=== PATIENT | female | born 1955 | race Caucasian/White ===

== ENCOUNTER 2025-01-18 14:26 | Outpatient (AMB) | payer OTHER, SELFPAY ==
--- NOTE | 2025-01-18 14:28 | A.PHYSOV ---
Vital Signs 01/18/25 14:29 Height 5 ft 5 in Weight 121 lb BMI 20.1 Intake Visit Reasons: Follow up after injection 12/12/24 Intake Note: Patient a 69 year old female in office today for a follow up after Right Hip Injection on 12/18/24. Post Anesthesia Room Nurse Required: No Allergies Penicillins Allergy (Unknown, Verified 01/18/25 14:31) Unknown HPI Comments Details: History of Present Illness The patient is a 69-year-old individual presenting with concerns about hip pain and the effectiveness of a recent hip injection. Patient under went right hip intra-articular injection 12/18/2024. She reports 80% reduction of her pain. The patient reported significant improvement in hip pain following the injection, which allowed the patient to sit and lay down comfortably. However, the patient continues to experience knee and back pain, which have not been treated with injections or therapy. The patient described the knee pain as occurring upon waking in the morning. The patient declined further interventions for the knee at this time, including injections, therapy, or imaging. The patient has been informed of severe degenerative changes in the hip joint, which may necessitate a hip replacement in the future. The patient expressed reluctance towards hip replacement surgery, citing age as a factor. The patient was advised that the hip injection could be repeated every three months, with the next potential injection being scheduled after . The patient was instructed to contact the clinic in two months to arrange for the next injection. Pain Description - Hip pain improved significantly after injection, allowing comfortable sitting and lying down. - Knee pain occurs upon waking, worsens as hip injection effects wear off. - Back pain persists, not treated with injections or therapy. Procedure: Right hip intra-articular injection 12/18/2024 [facility] Surgical History History of cholecystectomy (Unknown) History of (Unknown) Social History Household Members: Spouse Alcohol intake: current Alcohol intake frequency: holidays/special occasions only Substance Use Type: Marijuana Current occupational status: employed Review of Systems Narrative Review of Systems - Musculoskeletal: Reports hip pain improvement post-injection, knee pain upon waking, persistent back pain. Physical Exam Exam Exam: Physical Exam Lumbar Spine: Examination of her lumbar spine, there is no visible swelling or deformity. She is tender to the right lower lumbar facets. She is otherwise nontender. Full range motion of her lumbar spine. She does have an increase in pain with facet loading. Special Tests: Lhermittes sign was negative Heel Toe walk is normal Left straight leg raise: Negative Right straight leg raise: Negative Special tests Mahsa test is negative Ganslen's test is negative SI Joint compression test negative Kwasi test negative Piriformis stretch is negative Lower Extremities: Improved limited range of motion of her right hip in abduction and external rotation. Less painful range of motion. Neuro: Sensation: Intact to lower extremities bilaterally Strength L2 (Psoas): 5/5 on the left and 5/5 on the right. L3 (Quads): 5/5 on the left and 5/5 on the right. L4 (Ant tibialis): 5/5 on the left and 5/5 on the right. L5 (EHL) 5/5 on the left and 5/5 on the right. S1 (Gastroc): 5/5 on the left and 5/5 on the right. DTR L4: (Patellar) Left 2 Right 2 S1: (Achilles) Left 2 Right 2 Babinski Downgoing No pathologic clonus. No involuntary movement. Vital Signs: BMI result Body Mass Index 20.1 Assessment & Plan Assessment & Plan (1) Osteoarthritis of right hip: Code(s): M16.11 - Unilateral primary osteoarthritis, right hip Category: Medical Qualifiers: Osteoarthritis type: primary Qualified Code(s): M16.11 - Unilateral primary osteoarthritis, right hip (2) Back pain: Code(s): M54.9 - Dorsalgia, unspecified Category: Medical Qualifiers: Back pain location: low back pain Chronicity: chronic Back pain laterality: midline Sciatica presence: without sciatica Qualified Code(s): M54.50 - Low back pain, unspecified; G89.29 - Other chronic pain Plan Pain Management - Affect: The patient reports improved mood due to reduced hip pain. - Analgesia: Hip injection provided significant relief; knee and back pain remain untreated. - Activities of Daily Living: Improved ability to sit and lie down comfortably post-injection. Plan Patient was informed and verbally consented to the use of an ambient scribe for clinic note documentation during this visit. 1. Severe Degenerative Changes In The Hip Joint The patient has been informed of severe degenerative changes in the hip joint, which may necessitate a hip replacement in the future. The patient expressed reluctance towards hip replacement surgery, citing age as a factor. The patient was advised that the hip injection could be repeated every three months, with the next potential injection being scheduled after [place]. The patient was instructed to contact the clinic in two months to arrange for the next injection. 2. Severe Arthritis The patient has severe arthritis, which contributes to the hip and knee pain. The patient declined further interventions for the knee at this time, including injections, therapy, or imaging. Thank you for allowing me to participate in the care of your patient. Coding Level of Care Code Tele Est Pt Level 3 (47008) Diagnoses Primary osteoarthritis of right hip M16.11 Osteoarthritis type: primary Chronic midline low back pain without sciatica M54.50; G89.29 Back pain location: low back pain Chronicity: chronic Back pain laterality: midline Sciatica presence: without sciatica
[2025-01-18 14:29] VITALS: BMI 20.1
--- OUTSIDE RECORDS SUMMARY | 2025-01-18 19:21 | XMS_ITS ---
Author Name [facility] Organization Unknown Care Team Organization Name Specialty Phone Email Start Date End Da te [facility] 10/14/2024 [facility] Florentin Otero Primary Care 05/02/2022 [facility] Termed, PROVIDER Primary Care 01/02/202209/25
--- OUTSIDE RECORDS SUMMARY | 2025-01-18 19:21 | XMS_ITS | Clinical Summary ---
Author Organization [facility] Address [address] [place] [address] Phone Care Team Providers Care Diamond Sander Name Role Phone Florentin Otero Primary Care Provider [phone] Allergies Active Allergy Reactions Criticality Noted Date Comments Alendronate 12/11/2023 Jaw clicking Penicillins Anaphylaxis High 12/11/2023 Medications CALCIUM-VITAMI N D3-MAGNESIUM ORAL Cholecalciferol (Vitamin D3) 1.25 MG (19383 UT) Cap--- Take 1 Capsule by mouth once a week. - Oral Active albuterol HFA (PROVENTIL HFA;VENTOLIN HFA) 108 (90 Base) MCG/ACT inhaler Inhale 2 Puffs into the lungs every 6 hours as needed for Cough or Wheezing. - Inhalation Active ipratropium-al buteroL (DUONEB) 0.5-2.5 mg/3 mL nebulizer solution Inhale 3 mL into the lungs 4 times daily as needed for Other (wheezing, sob, cough). - Inhalation Active omega-3 fatty acids-fish oil 300-500 mg capsule Take by mouth 1 (one) time each day. Active acetaminophen (TYLENOL 8 HOUR) 650 mg 8 hr tablet Take 2 Tablets by mouth 2 times daily. - Oral Active naproxen sodium (ANAPROX) 220 mg tablet Take 2 Tablets by mouth 2 times daily (with meals). - Oral Active multivitamin (MULTIPLE VITAMINS ORAL) Take by mouth 1 (one) time each day. Active reservoir inhalation (INSPIREASE) device Use with inhaler Act chante cholecalcifero l (VITAMIN D-3) 1,250 mcg (50,000 unit) capsule Take 1 capsule (50,000 Units total) by mouth 1 (one) time per week. Active fluticasone-um eclidinium-yee anterol (Trelegy Ellipta) 200-62.5-25 mcg inhalerIndicat ions:Chronic obstructive pulmonary disease, unspecified COPD type (CMS/HCC V24, CMS/HCC V28) Inhale 1 puff (200 mcg total) by mouth 1 (one) time each day. 3 each 3 024 2024 Active FLUoxetine (PROzac) 40 mg capsule TAKE ONE CAPSULE BY MOUTH EVERY DAY 90 capsule 2 Active Allergy Relief, loratadine, 10 mg tablet TAKE ONE TABLET BY MOUTH EVERY DAY 90 tablet Active azithromycin (ZITHROMAX) 500 mg tablet TAKE 1 TABLET BY MOUTH ON SATURDAY, SATURDAY AND SATURDAY DIRECTED 45 tablet Active pantoprazole (PROTONIX) 40 mg EC tablet TAKE ONE TABLET BY MOUTH EVERY DAY 30 tablet Active predniSONE (DELTASONE) 20 mg tablet Take 3 tabs daily x3 days, then take 2 tabs daily x3 days, then take 1 tab daily for 3 day 18 each Active cyclobenzaprin e (FLEXERIL) 5 mg tablet Take 1 tablet (5 mg total) by mouth at bedtime as needed for muscle spasms. 30 tablet 1 025 2024 Active albuterol HFA (PROAIR HFA ; PROVENTIL HFA ; VENTOLIN HFA) 90 mcg/actuation inhalerIndicat ions:Chronic obstructive pulmonary disease, unspecified COPD type (CMS/HCC V24, CMS/HCC V28) Inhale 2 puffs by mouth every 6 (six) hours if needed for wheezing. 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 COPD (chronic obstructive pu lmonary disease) [place] [place], [facility] [place]28[place] 12/11/2023 Subclinical hypothyroidism 12/11/2023 Depression 12/11/2023 Arthritis of right hip 12/11/2023 Vitamin D deficiency 12/11/2023 Schatzki's ring 12/11/2023 Encounters Date Type Department Care Team Description 12/03/2024 9:30 AM EDT Office Visit Adult Medicine [address] [phone] Fely Tuttle PA Chronic obstructive pulmonary disease, unspecified COPD type ([facility], [facility] [place]28) (Primary Dx); Subclinical hypothyroidism; Vitamin D deficiency; Gastroesophageal reflux disease with esophagitis without hemorrhage; Anxiety and depression; Osteopenia of multiple sites; Hypercholesterolemia; Encounter for screening mammogram for malignant neoplasm of breast 11/05/2024 4:28 PM EDT - 11/05/2024 11:59 PM EDT Hospital Encounter Radiology Department - [address] [phone] Arthritis of right hip; Right leg pain; Right lumbar radiculopathy Discharge Disposition: Home or Self Care 11/05/2024 4:27 PM EDT - 11/05/2024 11:59 PM EDT Hospital Encounter Radiology Department - [address] [phone] Arthritis of right hip; Right leg pain; Right lumbar radiculopathy Discharge Disposition: Home or Self Care from Last 3 Months Immunizations Immunization Administration Dates Next Due Pfizer SARS-CoV-2 COVID-19, mRNA, LNP-S, preservative free 10/04/2020 Pneumococcal conjugate 13 va lent (Prevnar 13, PCV13) 2mo and older 11/17/2021 Pneumococcal polysaccharide 23 valent (Pneumovax 23) 2yo and older 10/24/2020,12/06/2005 Td Tetanus diptheria (Tdvax) 7yo and older 11/27,08/25/2001 Tdap Tetanus diptheria acell ular pertussis (Boostrix; Adacel) 7yo and older 12/27/2011 Zoster Live 12/13/2016,10/03/2016 Surgical History Surgery Date Site/Laterality Comments WISDOM TOOTH EXTRACTION PROCEDURE: HISTORICAL WISDOM TEETH EXTRACTION TONSILLECTOMY PROCEDURE: HISTORICAL TONSILLECTOMY BREAST BIOPSY PROCEDURE: VA BIOPSY BREAST OPEN INCISIONAL; COMMENT: several benign SECTION PROCEDURE: VA DELIVERY ONLY BREAST SURGERY PROCEDURE: VA UNLISTED PROCEDURE BREAST; COMMENT: lt cystectomy BREAST BIOPSY PROCEDURE: BX BREAST; PERC NEEDLE CORE W/IMAG GUID; COMMENT: barry bx neg OTHER SURGICAL HISTORY 11/26/2022 PROCEDURE: OUTSIDE ENDOSCOPY; COMMENT: muslu - gasttritis, HH, [place] Medical History Medical History Date Comments Asthma 06/02/2007 DX:Asthma Osteopenia 09/23/2008 DX:Osteopenia Family History Medical History Relation Name Comments Other: kidney disease Mother Breast cancer Other mat great aunt Colon cancer Neg Hx Ovarian cancer Neg Hx Relation Name Status Comments Brother 1 Alive dm parkinsons Brother 2 Alive Father (Age 87) mi Mother on dialysis , M I Other mat great aunt Sister Alive Social History Tobacco Use Types Packs/Day Years Used Date Smoking Tobacco: Former Cigarettes 4 Q uit: 12/25/1993 Smokeless Tobacco: Never Tobacco Cessation:Counseling Given: Not Answered Alcohol Use Standard Drinks/Week Comments Yes 0 (1 standard drink = 0.6 oz pur e alcohol) Housing Instability Answer Date Recorde d Are you worried that in the next 2 months you may not have stable housing? No 11/27/2024 Food Access & Nutrition Answer Date Rec orded Do you have access to a vari ety of food including fruits and vegetables? Yes 11/27/2024 Access to Healthcare Answer Date Record ed Within the last 3 months, stef thomason many times did you visit the emergency department for your medical care? 0 11/27/2024 Health Literacy Answer Date Recorded How often do you need to hav e someone help you when you read instructions, pamphlets, or other written material from your doctor or pharmacy? Never 11/27/2024 Caregiver: How often do you need to have someone help you when you read instructions, pamphlets, or other written material from your doctor or pharmacy? Not on file 11/27/2024 Transportation Answer Date Recorded Has the lack of transportati on kept you from meetings, work, or from getting things needed for daily living? No Has the lack of transportati on kept you from medical appointments or from getting medications? No 11/27/2024 Food Risk Answer Date Recorded Within the past 12 months we worried whether our food would run out before we got money to buy more. Sometimes true 025 Within the past 12 months th e food we bought just didn't last and we didn't have money to get more. Never true 11/27/2024 Dependent Care Answer Date Recorded Do you need help finding or paying for care for your loved ones. For example, children's tutor nursery or elderly care for an older adult? No 11/27/2024 Education Answer Date Recorded Do you think completing more education or training, like finishing a GED, going to college, or learning a trade, would be helpful for you? No 11/27/2024 Employment and Income Answer Date Recor ded During the last four weeks, have you been actively looking for work? No 11/27/2024 Living Situation Answer Date Recorded What is your living situation? Unrecognized valu e 11/27/2024 Comments No Sex and Gender Information Value Date Recorded Sex Assigned at Not on file Legal Sex Female 7:26 AM EST Gender Identity Not on file Sexual Orientation Not on file Obstetrics History Last Filed Vital Signs Vital Sign Reading Time Taken Comments Blood Pressure 114/71 12/03/2024 9:[address] rage Pulse 89 05/22/2024 8:12 AM EDT Temperature 35.7 C (96.2 F) 12/03/2024 9:26 AM EDT Respiratory Rate 18 12/03/2024 9:26 AM EDT Oxygen Saturation 96% 12/03/2024 9:26 AM EDT Inhaled Oxygen Concentration - - Weight 56.7 kg (125 lb) 12/03/2024 9:26 AM EDT Height 152.4 cm (5') 12/03/2024 9:26 AM EDT Body Mass Index 24.41 12/03/2024 9:26 AM EDT Plan of Treatment Upcoming Encounters Date Type Department Care Team (Late st Contact Info) Description 06/04/2025 1:00 PM EDT Office Visit Adult Medicine [address] [phone] Florentin Otero PA [address] [place] [phone] Health Maintenance Due Date Last Done Comments RSV Immunization Adult Patients (1 - Risk 50-74 years 1-dose series) 06/07/2005 Zoster Vaccines (2 of 3) 02/07/2017 12/13/2016, 10/2016 Medicare Annual Wellness Visit 02/03/2022 Breast Cancer Screening 03/27/2023 03/27/19, 03/15/2020, 05/30/2018, Additional history exists COVID-19 Vaccine ( season) 2024 05/09/2021, 10/04/2020, 09/13/2020 Colorectal Cancer Screening: Stool Based Tests (FOBT/FIT) 11/21/2024 11/22/2023 Falls Risk Assessment 05/22/2025 05/22/2024, 025 Influenza Vaccine (#1) 2025 Postp oned from 10/26/2024 (Patient Refused) Social Influencers of Health Screening 11/27/2025 11/27/2024 Cholesterol Screening (Lipid Panel) 05/21/2029 05/21/2024, 12/06/2023, 12/06/2023, Additional history exists Osteoporosis Screening (Bone Density Screening) 03/16/2031 03/16/2021 DTaP,Tdap,and Td Vaccines (4 - Td or Tdap) 11/27/2032 11/27/2022, 12/27/2011, 08/25/2001 Hepatitis C Screening Completed 01/29/2017 Pneumococcal Vaccine: 50+ Years Completed 11/17/2021, 10/24/2020, 12/06/2005 Colorectal Cancer Screening: Colonoscopy Discontinued 11/22/2023 Depression Screening Completed 11/27/2024 HIB Vaccines Aged Out No longer eligi ble based on patient's age to complete this topic HPV Vaccines Aged Out No longer eligi ble based on patient's age to complete this topic Hepatitis A Vaccines Aged Out No long er eligible based on patient's age to complete this topic Hepatitis B Vaccines Aged Out No long er eligible based on patient's age to complete this topic IPV Vaccines Aged Out No longer eligi ble based on patient's age to complete this topic MMR Vaccines Aged Out No longer eligi ble based on patient's age to complete this topic Meningococcal ACWY Vaccine Aged Out N o longer eligible based on patient's age to complete this topic Meningococcal B Vaccine Aged Out No l onger eligible based on patient's age to complete this topic RSV Immunization Patients Under 20 months Aged Out No longer eligible based on patient's age to complete this topic Varicella Vaccines Aged Out No longer eligible based on patient's age to complete this topic Procedures Procedure Name Priority Date/Time Associated Diagnosis Comments MR LUMBAR SPINE WO CONTRAST Routine 11/05/2024 5:42 PM EDT Arthritis of right hip Right leg pain Right lumbar radiculopathy MR HIP WO CONTRAST RIGHT Routine 11/05/2024 5:19 PM EDT Arthritis of right hip Right leg pain Right lumbar radiculopathy LIPID PANEL WITH REFLEX TO DIRECT LDL Routine 05/21/2024 3:25 PM EDT Chronic obstructive pulmonary disease, unspecified COPD type (CMS/HCC V24, CMS/HCC V28) Osteopenia, unspecified location Gastroesophageal reflux disease with esophagitis without hemorrhage Subclinical hypothyroidism Vitamin D deficiency COLONOSCOPY Routine 11/22/2023 SCREENING MAMMOGRAPHY BI 2-VIEW BREAST INC CAD Routine 03/27/2021 7:49 AM EST Encounter for screening mammogram for malignant neoplasm of breast DXA BONE DENSITY STUDY 1+ SITS AXIAL SKEL Routine 03/16/2021 10:13 AM EST Other specified disorders of bone density and structure, unspecified site HEPATITIS C SCREENING Routine 01/29/2017 from Last 3 Months or Most Recently Relevant to Health Maintenance Results * MR Lumbar Spine wo Contrast (11/05/2024 5:42 PM EDT) Anatomical Region Laterality Modality L-spine, Spine Magnetic Resonan ce 11/06/2024 2:17 PM EDT Impressions 11/06/2024 2:41 PM EDT Impression: 1. Multilevel degenerative changes worse at L3-L4 with mild bilateral neuroforaminal stenosis and moderate spinal canal stenosis. -------- FINAL REPORT -------- Dictated By: Halina Matias Dictated Date: 11/06/2024 14:17 ET Assigned Physician: Halina Matias Reviewed and Electronically Signed By: Halina Matias Signed Date: 11/06/2024 14:41 ET Workstation ID: [id number] Transcribed By: Self Edit Transcribed Date: 11/06/2024 14:17 ET Narrative 11/06/2024 2:41 PM EDT MRI LUMBAR SPINE Clinical Statement: Lumbar radiculopathy, > 6 wks right lumbar radiculopathy symptoms Comparison: None Technique: Multiplanar, multisequence MRI images of the lumbar spine were obtained without intravenous contrast. Findings: There is normal lumbar lordosis. There is preservation of vertebral body height. Vertebral body marrow signal is grossly within normal limits. Disc height is maintained, disc desiccation at multiple levels. Cord signal is normal. The conus medullaris is normal in signal characteristics and morphology and terminates at the L1-2 level. Incidentally noted thickening of the left adrenal gland. T12-L1: No neuroforaminal or spinal canal stenosis seen on the sagittal view L1-L2: Broad-based disc bulge without neuroforaminal or spinal canal stenosis L2-L3: Broad-based disc bulge, facet hypertrophy and arthropathy, small posterior annular tear on the right with mild bilateral neuroforaminal stenosis, no spinal canal stenosis L3-L4: Broad-based disc bulge, facet arthropathy and hypertrophy, ligamentum flavum hypertrophy with mild bilateral neuroforaminal stenosis and moderate spinal canal stenosis L4-L5: Broad-based disc bulge, facet arthropathy and hypertrophy, ligamentum flavum hypertrophy with moderate left and mild right neuroforaminal stenosis and mild spinal canal stenosis L5-S1: Broad-based disc bulge, facet arthropathy and hypertrophy, ligamentum flavum hypertrophy with mild bilateral neuroforaminal stenosis, no spinal canal stenosisI Procedure Note Halina Matias MD - 11/06/2024 MRI LUMBAR SPINE Clinical Statement: Lumbar radiculopathy, > 6 wks right lumbar radiculopathy symptoms Comparison: None Technique: Multiplanar, multisequence MRI images of the lumbar spine wereobtained without intravenous contrast. Findings: There is normal lumbar lordosis. There is preservation ofvertebral body height. Vertebral body marrow signal is grossly withinnormal limits. Disc height is maintained, disc desiccation at multiplelevels. Cord signal is normal. The conus medullaris is normal in signalcharacteristics and morphology and terminates at the L1-2 level.Incidentally noted thickening of the left adrenal gland. T12-L1: No neuroforaminal or spinal canal stenosis seen on the sagittalview L1-L2: Broad-based disc bulge without neuroforaminal or spinal canalstenosis L2-L3: Broad-based disc bulge, facet hypertrophy and arthropathy, smallposterior annular tear on the right with mild bilateral neuroforaminalstenosis, no spinal canal stenosis L3-L4: Broad-based disc bulge, facet arthropathy and hypertrophy,ligamentum flavum hypertrophy with mild bilateral neuroforaminal stenosisand moderate spinal canal stenosis L4-L5: Broad-based disc bulge, facet arthropathy and hypertrophy,ligamentum flavum hypertrophy with moderate left and mild rightneuroforaminal stenosis and mild spinal canal stenosis L5-S1: Broad-based disc bulge, facet arthropathy and hypertrophy,ligamentum flavum hypertrophy with mild bilateral neuroforaminal stenosis,no spinal canal stenosisI IMPRESSION: Impression: 1. Multilevel degenerative changes worse at L3-L4 with mild bilateralneuroforaminal stenosis and moderate spinal canal stenosis. -------- FINAL REPORT -------- Dictated By: Halina Matias Dictated Date: 11/06/2024 14:17 ET Assigned Physician: Halina Matias Reviewed and Electronically Signed By: Halina Matias Signed Date: 11/06/2024 14:41 ET Workstation ID: [id number] Transcribed By: Self Edit Transcribed Date: 11/06/2024 14:17 ET us Florentin GLORIA IM[facility] MRI PROCEDURES Final Result * MR Hip wo Contrast Right (11/05/2024 5:19 PM EDT) Anatomical Region Laterality Modality Lower Extremities, Hip Right Magnetic Resonance 11/06/2024 4:16 AM EDT Impressions 11/06/2024 4:19 AM EDT Moderate to severe right hip osteoarthritis with associated right hip joint effusion with synovitis/debris and small intra-articular bodies. -------- FINAL REPORT -------- Dictated By: Zahra Scherer Dictated Date: 11/06/2024 04:16 ET Assigned Physician: Zahra Scherer Reviewed and Electronically Signed By: Zahra Scherer Signed Date: 11/06/2024 04:19 ET Workstation ID: [id number] Transcribed By: Self Edit Transcribed Date: 11/06/2024 04:16 ET Narrative 11/06/2024 4:19 AM EDT INDICATION: Hip pain, chronic, arthritis or infection suspected, xray done right hip arthritis COMPARISON: Right hip radiographs dated April 2024 TECHNIQUE: Multiplanar, multisequence MRI was performed of the right hip without intravenous contrast administration. FINDINGS: Bone: Moderate to severe right hip osteoarthritis with joint space narrowing and cartilage thinning with superimposed cystic change along the acetabulum and right femoral head with underlying bone marrow edema of the right proximal femur. No definite cortical deformity. No definite fracture line. Contralateral moderate left hip osteoarthritis with joint space narrowing and left femoral head/neck junction osseous prominence. Mild degenerative changes of the symphysis pubis. Soft Tissues: Asymmetric right hip joint effusion with synovitis/debris and small intra- articular bodies. Right gluteus medias and minimus tendons are intact. No significant right greater trochanteric bursitis. Foci of dark signal within the uterus likely representing fibroids. Diverticulosis. Mild bilateral common hamstring origin tendinosis. Procedure Note Zahra Scherer MD - 11/06/2024 INDICATION: Hip pain, chronic, arthritis or infection suspected, xraydone right hip arthritis COMPARISON: Right hip radiographs dated April 2024 TECHNIQUE: Multiplanar, multisequence MRI was performed of the right hipwithout intravenous contrast administration. FINDINGS: Bone: Moderate to severe right hip osteoarthritis with joint spacenarrowing and cartilage thinning with superimposed cystic change along theacetabulum and right femoral head with underlying bone marrow edema of theright proximal femur. No definite cortical deformity. No definitefracture line. Contralateral moderate left hip osteoarthritis with joint space narrowingand left femoral head/neck junction osseous prominence. Mild degenerativechanges of the symphysis pubis. Soft Tissues: Asymmetric right hip joint effusion with synovitis/debrisand small intra-articular bodies. Right gluteus medias and minimustendons are intact. No significant right greater trochanteric bursitis. Foci of dark signal within the uterus likely representing fibroids.Diverticulosis. Mild bilateral common hamstring origin tendinosis. IMPRESSION: Moderate to severe right hip osteoarthritis with associated right hipjoint effusion with synovitis/debris and small intra-articular bodies. -------- FINAL REPORT -------- Dictated By: Zahra Scherer Dictated Date: 11/06/2024 04:16 ET Assigned Physician: Zahra Scherer Reviewed and Electronically Signed By: Zahra Scherer Signed Date: 11/06/2024 04:19 ET Workstation ID: [id number] Transcribed By: Self Edit Transcribed Date: 11/06/2024 04:16 ET Florentin [facility] [place]ED[place] Final Result * (ABNORMAL) Lipid panel with reflex to direct LDL (05/21/2024 3:25 PM EDT) Cholesterol 203(H) 0 - 200 mg/dL LAB CHEMISTRY METHOD 05/21/2024 5:36 PM EDT [facility] Triglycerides 364(H) 0 - 150 mg/dL LAB CHEMISTRY METHOD 05/21/2024 5:36 PM EDT [facility] HDL 50 >=40 mg/dL LAB CHEMISTRY METHOD 05/21/2024 5:36 PM EDT [facility] LDL Calculated 80 0 - 100 mg/dL LAB CHEMISTRY METHOD 05/21/2024 5:36 PM EDT [facility] VLDL Cholesterol Salvador 72.8 mg/dL LAB CHEMISTRY METHOD 05/21/2024 5:36 PM EDT [facility] Non HDL Chol. (LDL+VLDL) 153(H) <145 mg/dL LAB CHEMISTRY METHOD 05/21/2024 5:36 PM EDT [facility] Chol/HDL Ratio 4.1 0.0 - 4.4 LAB CHEMISTRY METHOD 05/21/2024 5:36 PM EDT [facility] Blood Venous blood specimen / Unknown Venipuncture / Unknown 05/21/2024 3:25 PM EDT 05/21/2024 3:25 PM EDT Florentin GLORIA LAB BLOOD ORDERABLES Aletha payne Result [facility] [address] [place] [address], [place] [phone] * Colonoscopy (11/22/2023) Colonoscopy no interpretation abstraction Anatomical Region Laterality Modality Other Historical Provider HEALTH MAINTENANCE Final Result * SCREENING MAMMOGRAPHY BI 2-VIEW BREAST INC CAD (03/27/2021 7:49 AM EST) Anatomical Region Laterality Modality Radiographic Carisa ging 03/15/2020 4:19 PM EST Narrative 03/27/2021 4:01 PM EST This is a summary report. The complete report is available in the patient's medical record. If you cannot access the medical record, please contact the sending organization for a detailed fax or copy. Exam: Screening mammogram Findings: Digital bilateral full-field screening mammography is performed with tomosynthesis and interpreted with the aid of computer-aided detection. Comparison is made with 03/15/2020 and as far back as 05/21/2016. Breast parenchyma is composed of scattered fibroglandular densities. No new suspicious mass, architectural distortion, or suspicious calcifications. Impression: No mammographic evidence of malignancy. BI-RADS 1 - negative Procedure Note Jocelyn Kiran MD - 02/13/2022 This is a summary report. The complete report is available in thepatient's medical record. If you cannot access the medical record, pleasecontact the sending organization for a detailed fax or copy. Exam: Screening mammogram Findings: Digital bilateral full-field screening mammography is performedwith tomosynthesis and interpreted with the aid of computer-aideddetection. Comparison is made with 03/15/2020 and as far back as05/21/2016. Breast parenchyma is composed of scattered fibroglandular densities. Nonew suspicious mass, architectural distortion, or suspiciouscalcifications. Impression: No mammographic evidence of malignancy. BI-RADS 1 - negative us Florentin GLORIA IM[facility] XR PROCEDURES Final R esult * DXA BONE DENSITY STUDY 1+ SITS AXIAL SKEL (03/16/2021 10:13 AM EST) Anatomical Region Laterality Modality Bone Densitometr y 10/24/2020 3:09 PM EDT Narrative 03/16/2021 4:23 PM EST BONE DENSITY Lumbar Spine T-score is -2.3 (SD relative to 20-29 y/o adult) Z-score is -0.5 (SD relative to age matched peers) This is consistent with osteopenia by criteria defined by the WHO. Left Hip T-score is -2.3 Z-score is -0.8 This is consistent with osteopenia by criteria defined by the WHO. Comparison exam(s): significant decrease in bone density of hip and lumbar spine when compared to most recent bone density examination Confidence level is +/-95%. Impression: Based on the World Health Organization criteria, Nicolle Navarrete should be classified as having osteopenia. This patient has a 31% risk of major osteoporotic fracture and a 4.6% risk of hip fracture over the next 10 years. (World Health Organization Fracture Risk Assessment) [facility] Department of Internal Medicine recommends using National Osteoporosis Foundation (NOF) guidelines in treatment decisions related to osteoporosis. NOF guidelines suggest considering treatment for postmenopausal women and men aged 50 or older presenting with the following: History of hip or vertebral fracture. T-score less than or equal to -2.5 (DXA) at the femoral neck, total hip, or spine, after appropriate evaluation to exclude secondary causes. Low bone mass (T-score between -1.0 and -2.5 at the femoral neck or spine) AND a 10-year probability of a hip fracture greater than or equal to 3% OR a 10-year probability of a major osteoporosis-related fracture greater than or equal to 20% based on the [place]-adapted WHO algorithm Please note that all treatment decisions require clinical judgment and consideration of individual patient factors, including patient preferences, co-morbidities, previous drug use, risk factors not captured in the FRAX model (e.g., frailty, falls, vitamin D deficiency, increased bone turnover, interval significant decline in bone density) and possible under- or over-estimation of fracture risk by FRAX. Procedure Note Feliciano Perez MD - 02/13/2022 BONE DENSITY Lumbar Spine T-score is -2.3 (SD relative to 20-29 y/o adult) Z-score is -0.5 (SD relative to age matched peers) This is consistent with osteopenia by criteria defined by the WHO. Left Hip T-score is -2.3 Z-score is -0.8 This is consistent with osteopenia by criteria defined by the WHO. Comparison exam(s): significant decrease in bone density of hip andlumbar spine when compared to most recent bone density examination Confidence level is +/-95%. Impression: Based on the World Health Organization criteria, Nicolle Navarrete should beclassified as having osteopenia. This patient has a 31% risk of majorosteoporotic fracture and a 4.6% risk of hip fracture over the next 10years. (World Health Organization Fracture Risk Assessment) [facility] Department of Internal Medicine recommendsusing National Osteoporosis Foundation (NOF) guidelines in treatmentdecisions related to osteoporosis. NOF guidelines suggest consideringtreatment for postmenopausal women and men aged 50 or older presentingwith the following: History of hip or vertebral fracture. T-score less than or equal to -2.5 (DXA) at the femoral neck, total hip,or spine, after appropriate evaluation to exclude secondary causes. Low bone mass (T-score between -1.0 and -2.5 at the femoral neck or spine)AND a 10-year probability of a hip fracture greater than or equal to 3% ORa 10-year probability of a major osteoporosis-related fracture greaterthan or equal to 20% based on the [place]-adapted WHO algorithm Please note that all treatment decisions require clinical judgment andconsideration of individual patient factors, including patientpreferences, co-morbidities, previous drug use, risk factors not capturedin the FRAX model (e.g., frailty, falls, vitamin D deficiency, increasedbone turnover, interval significant decline in bone density) and possibleunder- or over-estimation of fracture risk by FRAX. us Fely GARCIA DXA PROCEDURES Final Result * Hepatitis C Screening (01/29/2017) [facility] Signature Hepatitis C Screening abstracted Historical Provider MD HEALTH MAINTENANCE Final Result from Last 3 Months or Most Recently Relevant to Health Maintenance Insurance [employer] Care Teams Diamond Sander Relationship Specialty Start Date End Date Florentin Otero PA [address] [place] [id number] PCP - General Internal Medicine 12/20/23
== END 2025-01-18 15:11 | disposition home or self-care (01) ==
LOC: HO.HPHYS 14:26
PROVIDERS: PCP Physician Assistant Medical; Visit Provider Physician Assistant
DX: M16.11 Unilateral primary osteoarthritis, right hip (principal); M54.50 Low back pain, unspecified; G89.29 Other chronic pain
CPT/HCPCS: 99213